=== PATIENT | female | born 1935 | race Caucasian/White ===

== ENCOUNTER → 2019-10-06 05:10 | Outpatient (REF) | payer SELFPAY ==
[2019-10-06 08:29] LABS: Hematocrit 34.8 % (37-47); Mean Corp Hgb Conc 31.6 g/dL (32-36); Mean Corpuscular Hgb 29.2 pg (27.0-32.0); Mean Corpuscular Volume 92.3 fL (81-99); Platelet Count 330 K/mm3 (150-450); RBC Distribution Width CV 15.5 % (11.6-14.6); RBC Distribution Width SD 52.2 fl (35.1-43.9); Red Blood Count 3.77 M/mm3 (4.2-5.4); White Blood Count 7.3 K/mm3 (4.4-11.0)
[2019-10-06 08:57] LABS: Anion Gap 6 (5-15); BUN 11 mg/dL (7-18); BUN/Creat Ratio 14.9 RATIO (10-20); Calcium,Total 8.4 mg/dL (8.5-10.1); Chloride 105 mmol/L (98-107); Creatinine, Serum 0.74 mg/dL (0.55-1.02); EST Glomerular Filtration Rate 80 mL/min (>60); Est Glom Filt Rate - Afr Amer 97 mL/min (>60); Glucose 87 mg/dL (74-106); Potassium 3.8 mmol/L (3.5-5.1); Sodium Level 140 mmol/L (136-145)
== END ==
LOC: OLS.WHLEAS 05:10
PROVIDERS: Referring Provider Family Medicine; Visit Provider Family Medicine
DX: D62 Acute posthemorrhagic anemia (principal); S72.141D Displaced intertrochanteric fracture of right femur, subsequent encounter for closed fracture with routine healing; G89.18 Other acute postprocedural pain; Z47.89 Encounter for other orthopedic aftercare
CPT/HCPCS: 36415; 80048; 85027

== ENCOUNTER → 2019-10-13 04:28 | Outpatient (REF) | payer MEDICARE, SELFPAY ==
[2019-10-13 07:23] LABS: Hematocrit 36.6 % (37-47); Hemoglobin 11.4 g/dL (12.0-15.0); Mean Corp Hgb Conc 31.1 g/dL (32-36); Mean Corpuscular Hgb 28.8 pg (27.0-32.0); Mean Corpuscular Volume 92.4 fL (81-99); Mean Platelet Vol. 10.5 fl (6.2-12.0); Platelet Count 223 K/mm3 (150-450); RBC Distribution Width CV 15.6 % (11.6-14.6); RBC Distribution Width SD 53.2 fl (35.1-43.9); Red Blood Count 3.96 M/mm3 (4.2-5.4); White Blood Count 6.8 K/mm3 (4.4-11.0)
[2019-10-13 07:49] LABS: Anion Gap 4 (5-15); BUN 12 mg/dL (7-18); BUN/Creat Ratio 15.7 RATIO (10-20); Calcium,Total 8.5 mg/dL (8.5-10.1); Chloride 105 mmol/L (98-107); Creatinine, Serum 0.76 mg/dL (0.55-1.02); EST Glomerular Filtration Rate 77 mL/min (>60); Est Glom Filt Rate - Afr Amer 93 mL/min (>60); Glucose 87 mg/dL (74-106); Sodium Level 138 mmol/L (136-145)
== END ==
LOC: OLS.WHLEAS 04:28
PROVIDERS: Referring Provider Family Medicine; Visit Provider Family Medicine
DX: D62 Acute posthemorrhagic anemia (principal); S72.141D Displaced intertrochanteric fracture of right femur, subsequent encounter for closed fracture with routine healing; G89.18 Other acute postprocedural pain; Z47.89 Encounter for other orthopedic aftercare
CPT/HCPCS: 36415; 80048; 85027

== ENCOUNTER → 2019-10-20 05:00 | Outpatient (REF) | payer MEDICARE, SELFPAY ==
[2019-10-20 06:58] LABS: Hematocrit 35.8 % (37-47); Hemoglobin 11.4 g/dL (12.0-15.0); Mean Corp Hgb Conc 31.8 g/dL (32-36); Mean Corpuscular Volume 91.1 fL (81-99); Mean Platelet Vol. 10.8 fl (6.2-12.0); Platelet Count 217 K/mm3 (150-450); RBC Distribution Width CV 15.4 % (11.6-14.6); RBC Distribution Width SD 50.8 fl (35.1-43.9); Red Blood Count 3.93 M/mm3 (4.2-5.4); White Blood Count 6.9 K/mm3 (4.4-11.0)
[2019-10-20 07:33] LABS: Anion Gap 5 (5-15); BUN 16 mg/dL (7-18); BUN/Creat Ratio 22.9 RATIO (10-20); Calcium,Total 8.7 mg/dL (8.5-10.1); Chloride 103 mmol/L (98-107); EST Glomerular Filtration Rate 85 mL/min (>60); Est Glom Filt Rate - Afr Amer 103 mL/min (>60); Glucose 103 mg/dL (74-106); Potassium 4.1 mmol/L (3.5-5.1); Sodium Level 136 mmol/L (136-145)
[2019-10-20 08:25] LABS: Vitamin D,25 Hydroxy 58.5 ng/mL
== END ==
LOC: OLS.WHLEAS 05:00
PROVIDERS: Visit Provider Family Medicine
DX: Z47.89 Encounter for other orthopedic aftercare (principal); S72.141D Displaced intertrochanteric fracture of right femur, subsequent encounter for closed fracture with routine healing; G89.18 Other acute postprocedural pain; D62 Acute posthemorrhagic anemia; R48.8 Other symbolic dysfunctions
CPT/HCPCS: 36415; 80048; 82306; 85027

== ENCOUNTER → 2019-10-26 05:00 | Outpatient (REF) | payer MEDICARE, SELFPAY ==
[2019-10-26 07:29] LABS: Hematocrit 36.7 % (37-47); Hemoglobin 11.6 g/dL (12.0-15.0); Mean Corp Hgb Conc 31.6 g/dL (32-36); Mean Corpuscular Hgb 28.7 pg (27.0-32.0); Mean Corpuscular Volume 90.8 fL (81-99); Mean Platelet Vol. 10.4 fl (6.2-12.0); Platelet Count 273 K/mm3 (150-450); RBC Distribution Width CV 15.3 % (11.6-14.6); RBC Distribution Width SD 50.8 fl (35.1-43.9); Red Blood Count 4.04 M/mm3 (4.2-5.4); White Blood Count 7.8 K/mm3 (4.4-11.0)
[2019-10-26 07:51] LABS: Anion Gap 5 (5-15); BUN 11 mg/dL (7-18); Calcium,Total 8.6 mg/dL (8.5-10.1); Chloride 104 mmol/L (98-107); Creatinine, Serum 0.78 mg/dL (0.55-1.02); EST Glomerular Filtration Rate 74 mL/min (>60); Est Glom Filt Rate - Afr Amer 90 mL/min (>60); Glucose 98 mg/dL (74-106); Potassium 3.9 mmol/L (3.5-5.1); Sodium Level 139 mmol/L (136-145); Thyroid Stim Hormone (TSH) 6.73 uIU/mL (0.358-3.74)
== END ==
LOC: OLS.WHLEAS 05:00
PROVIDERS: Referring Provider Family Medicine; Visit Provider Family Medicine
DX: Z47.89 Encounter for other orthopedic aftercare (principal); D62 Acute posthemorrhagic anemia; S72.141D Displaced intertrochanteric fracture of right femur, subsequent encounter for closed fracture with routine healing; G89.18 Other acute postprocedural pain; E03.9 Hypothyroidism, unspecified
CPT/HCPCS: 36415; 80048; 84443; 85027

== ENCOUNTER → 2019-11-03 05:30 | Outpatient (REF) | payer MEDICARE, SELFPAY ==
[2019-11-03 08:41] LABS: Hematocrit 41.2 % (37-47); Hemoglobin 13.1 g/dL (12.0-15.0); Mean Corp Hgb Conc 31.8 g/dL (32-36); Mean Corpuscular Hgb 28.5 pg (27.0-32.0); Mean Corpuscular Volume 89.8 fL (81-99); Mean Platelet Vol. 10.5 fl (6.2-12.0); Platelet Count 259 K/mm3 (150-450); RBC Distribution Width CV 15.8 % (11.6-14.6); Red Blood Count 4.59 M/mm3 (4.2-5.4); White Blood Count 11.7 K/mm3 (4.4-11.0)
[2019-11-03 08:51] LABS: Anion Gap 7 (5-15); BUN 12 mg/dL (7-18); Calcium,Total 8.8 mg/dL (8.5-10.1); Chloride 99 mmol/L (98-107); Creatinine, Serum 0.71 mg/dL (0.55-1.02); EST Glomerular Filtration Rate 84 mL/min (>60); Est Glom Filt Rate - Afr Amer 101 mL/min (>60); Glucose 120 mg/dL (74-106); Sodium Level 133 mmol/L (136-145)
== END ==
LOC: OLS.WHLEAS 05:30
PROVIDERS: Referring Provider Family Medicine; Visit Provider Family Medicine
DX: D62 Acute posthemorrhagic anemia (principal); Z47.89 Encounter for other orthopedic aftercare; S72.141D Displaced intertrochanteric fracture of right femur, subsequent encounter for closed fracture with routine healing; G89.18 Other acute postprocedural pain
CPT/HCPCS: 36415; 80048; 85027

== ENCOUNTER → 2019-11-10 05:00 | Outpatient (REF) | payer MEDICARE, OTHER, SELFPAY ==
[2019-11-10 08:06] LABS: Hematocrit 36.6 % (37-47); Hemoglobin 11.7 g/dL (12.0-15.0); Mean Corpuscular Hgb 28.6 pg (27.0-32.0); Mean Corpuscular Volume 89.5 fL (81-99); Mean Platelet Vol. 10.8 fl (6.2-12.0); Platelet Count 211 K/mm3 (150-450); RBC Distribution Width CV 15.4 % (11.6-14.6); RBC Distribution Width SD 50.4 fl (35.1-43.9); Red Blood Count 4.09 M/mm3 (4.2-5.4); White Blood Count 9.6 K/mm3 (4.4-11.0)
[2019-11-10 08:16] LABS: Anion Gap 5 (5-15); BUN 14 mg/dL (7-18); BUN/Creat Ratio 19.7 RATIO (10-20); Calcium,Total 8.9 mg/dL (8.5-10.1); Chloride 102 mmol/L (98-107); Creatinine, Serum 0.71 mg/dL (0.55-1.02); EST Glomerular Filtration Rate 83 mL/min (>60); Est Glom Filt Rate - Afr Amer 101 mL/min (>60); Glucose 124 mg/dL (74-106); Potassium 4.3 mmol/L (3.5-5.1); Sodium Level 133 mmol/L (136-145)
== END ==
LOC: OLS.WHLEAS 05:00
PROVIDERS: Visit Provider Family Medicine
DX: D62 Acute posthemorrhagic anemia (principal); S72.141D Displaced intertrochanteric fracture of right femur, subsequent encounter for closed fracture with routine healing; G89.18 Other acute postprocedural pain; Z47.89 Encounter for other orthopedic aftercare
CPT/HCPCS: 36415; 80048; 85027

== ENCOUNTER → 2019-11-17 05:00 | Outpatient (REF) | payer MEDICARE, OTHER, SELFPAY ==
[2019-11-17 07:44] LABS: Hematocrit 41.4 % (37-47); Hemoglobin 12.8 g/dL (12.0-15.0); Mean Corp Hgb Conc 30.9 g/dL (32-36); Mean Corpuscular Hgb 27.5 pg (27.0-32.0); Mean Platelet Vol. 9.9 fl (6.2-12.0); Platelet Count 307 K/mm3 (150-450); RBC Distribution Width CV 15.5 % (11.6-14.6); RBC Distribution Width SD 50.7 fl (35.1-43.9); Red Blood Count 4.65 M/mm3 (4.2-5.4); White Blood Count 7.8 K/mm3 (4.4-11.0)
[2019-11-17 08:06] LABS: Anion Gap 8 (5-15); BUN 11 mg/dL (7-18); BUN/Creat Ratio 14.8 RATIO (10-20); Calcium,Total 8.8 mg/dL (8.5-10.1); Chloride 103 mmol/L (98-107); Creatinine, Serum 0.74 mg/dL (0.55-1.02); EST Glomerular Filtration Rate 79 mL/min (>60); Est Glom Filt Rate - Afr Amer 96 mL/min (>60); Glucose 102 mg/dL (74-106); Potassium 3.8 mmol/L (3.5-5.1); Sodium Level 139 mmol/L (136-145)
== END ==
LOC: OLS.WHLEAS 05:00
PROVIDERS: Referring Provider Family Medicine; Visit Provider Family Medicine
DX: D62 Acute posthemorrhagic anemia (principal); Z47.89 Encounter for other orthopedic aftercare; S72.141D Displaced intertrochanteric fracture of right femur, subsequent encounter for closed fracture with routine healing; G89.18 Other acute postprocedural pain
CPT/HCPCS: 36415; 80048; 85027

== ENCOUNTER → 2019-11-24 05:00 | Outpatient (REF) | payer MEDICARE, OTHER, SELFPAY ==
[2019-11-24 07:39] LABS: Hemoglobin 12.3 g/dL (12.0-15.0); Mean Corp Hgb Conc 30.8 g/dL (32-36); Mean Corpuscular Hgb 27.5 pg (27.0-32.0); Mean Corpuscular Volume 89.5 fL (81-99); Mean Platelet Vol. 10.1 fl (6.2-12.0); Platelet Count 246 K/mm3 (150-450); RBC Distribution Width CV 15.5 % (11.6-14.6); RBC Distribution Width SD 51.4 fl (35.1-43.9); Red Blood Count 4.47 M/mm3 (4.2-5.4); White Blood Count 7.1 K/mm3 (4.4-11.0)
[2019-11-24 08:04] LABS: Anion Gap 4 (5-15); BUN 11 mg/dL (7-18); Calcium,Total 8.9 mg/dL (8.5-10.1); Chloride 104 mmol/L (98-107); Creatinine, Serum 0.78 mg/dL (0.55-1.02); EST Glomerular Filtration Rate 74 mL/min (>60); Est Glom Filt Rate - Afr Amer 90 mL/min (>60); Glucose 97 mg/dL (74-106); Potassium 4.3 mmol/L (3.5-5.1); Sodium Level 137 mmol/L (136-145)
== END ==
LOC: OLS.WHLEAS 05:00
PROVIDERS: Referring Provider Family Medicine; Visit Provider Family Medicine
DX: D62 Acute posthemorrhagic anemia (principal)
CPT/HCPCS: 36415; 80048; 85027

== ENCOUNTER → 2019-12-01 05:00 | Outpatient (REF) | payer MEDICARE, OTHER, SELFPAY ==
[2019-12-01 07:03] LABS: Hematocrit 40.7 % (37-47); Hemoglobin 12.6 g/dL (12.0-15.0); Mean Corpuscular Hgb 27.5 pg (27.0-32.0); Mean Corpuscular Volume 88.7 fL (81-99); Mean Platelet Vol. 10.5 fl (6.2-12.0); Platelet Count 219 K/mm3 (150-450); RBC Distribution Width CV 15.6 % (11.6-14.6); RBC Distribution Width SD 50.9 fl (35.1-43.9); Red Blood Count 4.59 M/mm3 (4.2-5.4); White Blood Count 9.7 K/mm3 (4.4-11.0)
[2019-12-01 07:22] LABS: Anion Gap 5 (5-15); BUN 13 mg/dL (7-18); Calcium,Total 8.8 mg/dL (8.5-10.1); Chloride 101 mmol/L (98-107); Creatinine, Serum 0.81 mg/dL (0.55-1.02); EST Glomerular Filtration Rate 71 mL/min (>60); Est Glom Filt Rate - Afr Amer 86 mL/min (>60); Glucose 100 mg/dL (74-106); Sodium Level 137 mmol/L (136-145)
== END ==
LOC: OLS.WHLEAS 05:00
PROVIDERS: Visit Provider Family Medicine
DX: D62 Acute posthemorrhagic anemia (principal); S72.141D Displaced intertrochanteric fracture of right femur, subsequent encounter for closed fracture with routine healing; G89.18 Other acute postprocedural pain; Z47.89 Encounter for other orthopedic aftercare
CPT/HCPCS: 36415; 80048; 85027

== ENCOUNTER → 2019-12-08 05:00 | Outpatient (REF) | payer MEDICARE, OTHER, SELFPAY ==
[2019-12-08 06:54] LABS: Hematocrit 39.3 % (37-47); Hemoglobin 12.2 g/dL (12.0-15.0); Mean Corpuscular Hgb 27.4 pg (27.0-32.0); Mean Corpuscular Volume 88.1 fL (81-99); Mean Platelet Vol. 10.5 fl (6.2-12.0); Platelet Count 246 K/mm3 (150-450); RBC Distribution Width CV 15.4 % (11.6-14.6); RBC Distribution Width SD 50.2 fl (35.1-43.9); Red Blood Count 4.46 M/mm3 (4.2-5.4); White Blood Count 8.7 K/mm3 (4.4-11.0)
[2019-12-08 07:21] LABS: Anion Gap 5 (5-15); BUN 12 mg/dL (7-18); BUN/Creat Ratio 15.7 RATIO (10-20); Chloride 103 mmol/L (98-107); Creatinine, Serum 0.76 mg/dL (0.55-1.02); EST Glomerular Filtration Rate 76 mL/min (>60); Est Glom Filt Rate - Afr Amer 92 mL/min (>60); Glucose 103 mg/dL (74-106); Sodium Level 137 mmol/L (136-145)
== END ==
LOC: OLS.WHLEAS 05:00
PROVIDERS: Referring Provider Family Medicine; Visit Provider Family Medicine
DX: E03.9 Hypothyroidism, unspecified (principal); Z47.89 Encounter for other orthopedic aftercare; S72.141D Displaced intertrochanteric fracture of right femur, subsequent encounter for closed fracture with routine healing; G89.18 Other acute postprocedural pain; D62 Acute posthemorrhagic anemia
CPT/HCPCS: 36415; 80048; 84443; 85027

== ENCOUNTER → 2019-12-15 05:00 | Outpatient (REF) | payer MEDICARE, OTHER, SELFPAY ==
[2019-12-15 08:22] LABS: Hematocrit 41.3 % (37-47); Hemoglobin 12.8 g/dL (12.0-15.0); Mean Corpuscular Hgb 27.7 pg (27.0-32.0); Mean Corpuscular Volume 89.4 fL (81-99); Mean Platelet Vol. 10.5 fl (6.2-12.0); Platelet Count 242 K/mm3 (150-450); RBC Distribution Width CV 15.5 % (11.6-14.6); RBC Distribution Width SD 51.1 fl (35.1-43.9); Red Blood Count 4.62 M/mm3 (4.2-5.4)
[2019-12-15 08:59] LABS: Anion Gap 7 (5-15); BUN 11 mg/dL (7-18); BUN/Creat Ratio 15.7 RATIO (10-20); Calcium,Total 8.8 mg/dL (8.5-10.1); Chloride 102 mmol/L (98-107); EST Glomerular Filtration Rate 84 mL/min (>60); Est Glom Filt Rate - Afr Amer 102 mL/min (>60); Glucose 89 mg/dL (74-106); Potassium 3.9 mmol/L (3.5-5.1); Sodium Level 139 mmol/L (136-145)
== END ==
LOC: OLS.WHLEAS 05:00
PROVIDERS: Referring Provider Family Medicine; Visit Provider Family Medicine
DX: D62 Acute posthemorrhagic anemia (principal); Z47.89 Encounter for other orthopedic aftercare; S72.141D Displaced intertrochanteric fracture of right femur, subsequent encounter for closed fracture with routine healing; G89.18 Other acute postprocedural pain
CPT/HCPCS: 36415; 80048; 85027

== ENCOUNTER → 2019-12-22 05:00 | Outpatient (REF) | payer MEDICARE, OTHER, SELFPAY ==
[2019-12-22 08:45] LABS: Hematocrit 38.1 % (37-47); Hemoglobin 11.9 g/dL (12.0-15.0); Mean Corp Hgb Conc 31.2 g/dL (32-36); Mean Corpuscular Hgb 27.8 pg (27.0-32.0); Mean Platelet Vol. 10.7 fl (6.2-12.0); Platelet Count 201 K/mm3 (150-450); RBC Distribution Width CV 15.7 % (11.6-14.6); RBC Distribution Width SD 51.4 fl (35.1-43.9); Red Blood Count 4.28 M/mm3 (4.2-5.4); White Blood Count 8.5 K/mm3 (4.4-11.0)
[2019-12-22 09:13] LABS: Anion Gap 4 (5-15); BUN 13 mg/dL (7-18); Calcium,Total 8.7 mg/dL (8.5-10.1); Chloride 106 mmol/L (98-107); Creatinine, Serum 0.76 mg/dL (0.55-1.02); EST Glomerular Filtration Rate 76 mL/min (>60); Est Glom Filt Rate - Afr Amer 92 mL/min (>60); Glucose 98 mg/dL (74-106); Sodium Level 139 mmol/L (136-145)
== END ==
LOC: OLS.WHLEAS 05:00
PROVIDERS: Referring Provider Family Medicine; Visit Provider Family Medicine
DX: Z47.89 Encounter for other orthopedic aftercare (principal); D62 Acute posthemorrhagic anemia; S72.141D Displaced intertrochanteric fracture of right femur, subsequent encounter for closed fracture with routine healing; G89.18 Other acute postprocedural pain
CPT/HCPCS: 36415; 80048; 85027

== ENCOUNTER → 2019-12-29 05:00 | Outpatient (REF) | payer MEDICARE, OTHER, SELFPAY ==
[2019-12-29 08:02] LABS: Hemoglobin 12.6 g/dL (12.0-15.0); Mean Corp Hgb Conc 30.7 g/dL (32-36); Mean Corpuscular Hgb 27.5 pg (27.0-32.0); Mean Corpuscular Volume 89.5 fL (81-99); Mean Platelet Vol. 10.4 fl (6.2-12.0); Platelet Count 209 K/mm3 (150-450); RBC Distribution Width CV 15.4 % (11.6-14.6); RBC Distribution Width SD 51.6 fl (35.1-43.9); Red Blood Count 4.58 M/mm3 (4.2-5.4)
[2019-12-29 08:34] LABS: Anion Gap 3 (5-15); BUN 14 mg/dL (7-18); BUN/Creat Ratio 19.3 RATIO (10-20); Chloride 105 mmol/L (98-107); Creatinine, Serum 0.73 mg/dL (0.55-1.02); EST Glomerular Filtration Rate 81 mL/min (>60); Est Glom Filt Rate - Afr Amer 98 mL/min (>60); Glucose 98 mg/dL (74-106); Sodium Level 138 mmol/L (136-145)
== END ==
LOC: OLS.WHLEAS 05:00
PROVIDERS: Referring Provider Family Medicine; Visit Provider Family Medicine
DX: Z47.89 Encounter for other orthopedic aftercare (principal); D62 Acute posthemorrhagic anemia; S72.141D Displaced intertrochanteric fracture of right femur, subsequent encounter for closed fracture with routine healing; G89.18 Other acute postprocedural pain
CPT/HCPCS: 36415; 80048; 85027

== ENCOUNTER → 2020-01-04 05:00 | Outpatient (REF) | payer MEDICARE, OTHER, SELFPAY ==
[2020-01-04 06:59] LABS: Hematocrit 41.7 % (37-47); Hemoglobin 12.8 g/dL (12.0-15.0); Mean Corp Hgb Conc 30.7 g/dL (32-36); Mean Corpuscular Volume 91.2 fL (81-99); Mean Platelet Vol. 10.4 fl (6.2-12.0); Platelet Count 223 K/mm3 (150-450); RBC Distribution Width CV 15.3 % (11.6-14.6); RBC Distribution Width SD 50.4 fl (35.1-43.9); Red Blood Count 4.57 M/mm3 (4.2-5.4); White Blood Count 5.6 K/mm3 (4.4-11.0)
[2020-01-04 07:34] LABS: Anion Gap 2 (5-15); BUN 12 mg/dL (7-18); BUN/Creat Ratio 15.5 RATIO (10-20); Calcium,Total 9.1 mg/dL (8.5-10.1); Chloride 104 mmol/L (98-107); Creatinine, Serum 0.78 mg/dL (0.55-1.02); EST Glomerular Filtration Rate 75 mL/min (>60); Est Glom Filt Rate - Afr Amer 91 mL/min (>60); Glucose 98 mg/dL (74-106); Potassium 4.3 mmol/L (3.5-5.1); Sodium Level 137 mmol/L (136-145)
== END ==
LOC: OLS.WHLEAS 05:00
PROVIDERS: Visit Provider Family Medicine
DX: D62 Acute posthemorrhagic anemia (principal); S72.141D Displaced intertrochanteric fracture of right femur, subsequent encounter for closed fracture with routine healing; G89.18 Other acute postprocedural pain; Z47.89 Encounter for other orthopedic aftercare
CPT/HCPCS: 36415; 80048; 85027

== ENCOUNTER → 2020-01-13 09:00 | Outpatient (REF) | payer MEDICARE, OTHER, SELFPAY ==
[2020-01-13 10:51] LABS: Hematocrit 39.1 % (37-47); Hemoglobin 12.5 g/dL (12.0-15.0); Mean Corpuscular Hgb 28.2 pg (27.0-32.0); Mean Corpuscular Volume 88.1 fL (81-99); Mean Platelet Vol. 10.5 fl (6.2-12.0); Platelet Count 174 K/mm3 (150-450); RBC Distribution Width CV 15.6 % (11.6-14.6); RBC Distribution Width SD 50.4 fl (35.1-43.9); Red Blood Count 4.44 M/mm3 (4.2-5.4); White Blood Count 4.2 K/mm3 (4.4-11.0)
[2020-01-13 11:18] LABS: Anion Gap 7 (5-15); BUN 10 mg/dL (7-18); BUN/Creat Ratio 14.5 RATIO (10-20); Calcium,Total 8.4 mg/dL (8.5-10.1); Chloride 98 mmol/L (98-107); Creatinine, Serum 0.69 mg/dL (0.55-1.02); EST Glomerular Filtration Rate 86 mL/min (>60); Est Glom Filt Rate - Afr Amer 104 mL/min (>60); Glucose 120 mg/dL (74-106); Potassium 3.7 mmol/L (3.5-5.1); Sodium Level 132 mmol/L (136-145)
== END ==
LOC: OLS.WHLTCC 09:00
PROVIDERS: Referring Provider Family Medicine; Visit Provider Family Medicine
DX: D62 Acute posthemorrhagic anemia (principal); S72.141D Displaced intertrochanteric fracture of right femur, subsequent encounter for closed fracture with routine healing; G89.18 Other acute postprocedural pain; Z47.89 Encounter for other orthopedic aftercare
CPT/HCPCS: 36415; 80048; 85027

== ENCOUNTER → 2020-04-18 05:00 | Outpatient (REF) | payer MEDICARE, OTHER, SELFPAY ==
[2020-04-18 07:22] LABS: Hematocrit 39.6 % (37-47); Hemoglobin 12.4 g/dL (12.0-15.0); Mean Corp Hgb Conc 31.3 g/dL (32-36); Mean Corpuscular Volume 92.5 fL (81-99); Mean Platelet Vol. 11.1 fl (6.2-12.0); Platelet Count 211 K/mm3 (150-450); RBC Distribution Width CV 14.3 % (11.6-14.6); RBC Distribution Width SD 48.4 fl (35.1-43.9); Red Blood Count 4.28 M/mm3 (4.2-5.4); White Blood Count 6.5 K/mm3 (4.4-11.0)
[2020-04-18 08:26] LABS: Anion Gap 3 (5-15); BUN 13 mg/dL (7-18); BUN/Creat Ratio 16.2 RATIO (10-20); Chloride 107 mmol/L (98-107); EST Glomerular Filtration Rate 72 mL/min (>60); Est Glom Filt Rate - Afr Amer 88 mL/min (>60); Glucose 101 mg/dL (74-106); Potassium 3.9 mmol/L (3.5-5.1); Sodium Level 141 mmol/L (136-145); Thyroid Stim Hormone (TSH) 1.17 uIU/mL (0.358-3.74)
== END ==
LOC: OLS.WHLEAS 05:00
PROVIDERS: Visit Provider Family Medicine
DX: D62 Acute posthemorrhagic anemia (principal); S72.141A Displaced intertrochanteric fracture of right femur, initial encounter for closed fracture; G89.18 Other acute postprocedural pain; E03.9 Hypothyroidism, unspecified; Z47.89 Encounter for other orthopedic aftercare
CPT/HCPCS: 36415; 80048; 84443; 85027

== ENCOUNTER → 2020-07-18 05:00 | Outpatient (REF) | payer MEDICARE, OTHER, SELFPAY ==
[2020-07-18 07:52] LABS: Hematocrit 37.2 % (37-47); Hemoglobin 11.6 g/dL (12.0-15.0); Mean Corp Hgb Conc 31.2 g/dL (32-36); Mean Corpuscular Hgb 29.4 pg (27.0-32.0); Mean Corpuscular Volume 94.4 fL (81-99); Platelet Count 180 K/mm3 (150-450); RBC Distribution Width CV 13.6 % (11.6-14.6); RBC Distribution Width SD 47.4 fl (35.1-43.9); Red Blood Count 3.94 M/mm3 (4.2-5.4); White Blood Count 5.9 K/mm3 (4.4-11.0)
[2020-07-18 08:12] LABS: Anion Gap 5 (5-15); BUN 14 mg/dL (7-18); BUN/Creat Ratio 17.7 RATIO (10-20); Calcium,Total 8.7 mg/dL (8.5-10.1); Chloride 106 mmol/L (98-107); Creatinine, Serum 0.79 mg/dL (0.55-1.02); EST Glomerular Filtration Rate 73 mL/min (>60); Est Glom Filt Rate - Afr Amer 88 mL/min (>60); Glucose 93 mg/dL (74-106); Potassium 3.6 mmol/L (3.5-5.1); Sodium Level 141 mmol/L (136-145)
== END ==
LOC: OLS.WHLEAS 05:00
PROVIDERS: Referring Provider Family Medicine; Visit Provider Family Medicine
DX: D62 Acute posthemorrhagic anemia (principal); Z47.89 Encounter for other orthopedic aftercare; S72.141D Displaced intertrochanteric fracture of right femur, subsequent encounter for closed fracture with routine healing; G89.18 Other acute postprocedural pain
CPT/HCPCS: 36415; 80048; 85027

== ENCOUNTER → 2020-10-17 05:00 | Outpatient (REF) | payer MEDICARE, OTHER, SELFPAY ==
[2020-10-17 06:04] LABS: Hematocrit 41.8 % (37-47); Mean Corp Hgb Conc 31.1 g/dL (32-36); Mean Corpuscular Hgb 29.5 pg (27.0-32.0); Mean Corpuscular Volume 94.8 fL (81-99); Mean Platelet Vol. 9.9 fl (6.2-12.0); Platelet Count 237 K/mm3 (150-450); RBC Distribution Width CV 13.5 % (11.6-14.6); RBC Distribution Width SD 47.8 fl (35.1-43.9); Red Blood Count 4.41 M/mm3 (4.2-5.4); White Blood Count 6.2 K/mm3 (4.4-11.0)
[2020-10-17 06:38] LABS: Anion Gap 3 (5-15); BUN 15 mg/dL (7-18); BUN/Creat Ratio 17.9 RATIO (10-20); Chloride 108 mmol/L (98-107); Creatinine, Serum 0.84 mg/dL (0.55-1.02); EST Glomerular Filtration Rate 69 mL/min (>60); Est Glom Filt Rate - Afr Amer 83 mL/min (>60); Glucose 127 mg/dL (74-106); Potassium 3.9 mmol/L (3.5-5.1); Sodium Level 139 mmol/L (136-145); Thyroid Stim Hormone (TSH) 1.91 uIU/mL (0.358-3.74)
== END ==
LOC: OLS.WHLEAS 05:00
PROVIDERS: Visit Provider Family Medicine
DX: D62 Acute posthemorrhagic anemia (principal); Z47.89 Encounter for other orthopedic aftercare; S72.141D Displaced intertrochanteric fracture of right femur, subsequent encounter for closed fracture with routine healing; G89.18 Other acute postprocedural pain; E03.9 Hypothyroidism, unspecified
CPT/HCPCS: 36415; 80048; 84443; 85027

== ENCOUNTER → 2021-01-16 04:00 | Outpatient (REF) | payer MEDICARE, OTHER, SELFPAY ==
[2021-01-16 06:49] LABS: Hematocrit 36.9 % (37-47); Hemoglobin 11.5 g/dL (12.0-15.0); Mean Corp Hgb Conc 31.2 g/dL (32-36); Mean Corpuscular Hgb 28.5 pg (27.0-32.0); Mean Corpuscular Volume 91.3 fL (81-99); Mean Platelet Vol. 10.1 fl (6.2-12.0); Platelet Count 214 K/mm3 (150-450); RBC Distribution Width CV 14.3 % (11.6-14.6); RBC Distribution Width SD 47.9 fl (35.1-43.9); Red Blood Count 4.04 M/mm3 (4.2-5.4); White Blood Count 6.6 K/mm3 (4.4-11.0)
[2021-01-16 07:10] LABS: Anion Gap 7 (5-15); BUN 11 mg/dL (7-18); BUN/Creat Ratio 16.4 RATIO (10-20); Calcium,Total 8.7 mg/dL (8.5-10.1); Chloride 108 mmol/L (98-107); Creatinine, Serum 0.67 mg/dL (0.55-1.02); EST Glomerular Filtration Rate 89 mL/min (>60); Est Glom Filt Rate - Afr Amer 107 mL/min (>60); Glucose 98 mg/dL (74-106); Potassium 3.3 mmol/L (3.5-5.1); Sodium Level 144 mmol/L (136-145)
== END ==
LOC: OLS.WHLEAS 04:00
PROVIDERS: Referring Provider Family Medicine; Visit Provider Family Medicine
DX: D62 Acute posthemorrhagic anemia (principal); S72.141D Displaced intertrochanteric fracture of right femur, subsequent encounter for closed fracture with routine healing; G89.18 Other acute postprocedural pain; Z47.89 Encounter for other orthopedic aftercare
CPT/HCPCS: 36415; 80048; 85027

== ENCOUNTER → 2021-04-17 | Outpatient (REF) | payer MEDICARE, OTHER, SELFPAY ==
[2021-04-17 08:22] LABS: Hematocrit 36.6 % (37-47); Hemoglobin 11.4 g/dL (12.0-15.0); Mean Corp Hgb Conc 31.1 g/dL (32-36); Mean Corpuscular Hgb 28.3 pg (27.0-32.0); Mean Corpuscular Volume 90.8 fL (81-99); Mean Platelet Vol. 10.9 fl (6.2-12.0); Platelet Count 208 K/mm3 (150-450); RBC Distribution Width CV 14.9 % (11.6-14.6); RBC Distribution Width SD 49.8 fl (35.1-43.9); Red Blood Count 4.03 M/mm3 (4.2-5.4); White Blood Count 6.5 K/mm3 (4.4-11.0)
[2021-04-17 08:54] LABS: Anion Gap 4 (5-15); BUN 15 mg/dL (7-18); BUN/Creat Ratio 20.5 RATIO (10-20); Calcium,Total 8.7 mg/dL (8.5-10.1); Chloride 107 mmol/L (98-107); Creatinine, Serum 0.73 mg/dL (0.55-1.02); EST Glomerular Filtration Rate 80 mL/min (>60); Est Glom Filt Rate - Afr Amer 97 mL/min (>60); Glucose 94 mg/dL (74-106); Potassium 3.8 mmol/L (3.5-5.1); Sodium Level 141 mmol/L (136-145); Thyroid Stim Hormone (TSH) 0.32 uIU/mL (0.358-3.74)
== END | disposition home or self-care (01) ==
LOC: OLS.WHLEAS 04:00
PROVIDERS: Referring Provider Family Medicine; Visit Provider Family Medicine
DX: D62 Acute posthemorrhagic anemia (principal); G30.9 Alzheimer's disease, unspecified; F33.9 Major depressive disorder, recurrent, unspecified; E11.9 Type 2 diabetes mellitus without complications; E03.9 Hypothyroidism, unspecified; G47.00 Insomnia, unspecified
CPT/HCPCS: 36415; 80048; 84443; 85027

== ENCOUNTER → 2021-07-17 | Outpatient (REF) | payer MEDICARE, OTHER, SELFPAY ==
[2021-07-17 07:38] LABS: Hematocrit 41.7 % (37-47); Hemoglobin 12.7 g/dL (12.0-15.0); Mean Corp Hgb Conc 30.5 g/dL (32-36); Mean Corpuscular Hgb 29.4 pg (27.0-32.0); Mean Corpuscular Volume 96.5 fL (81-99); Mean Platelet Vol. 10.7 fl (6.2-12.0); Platelet Count 184 K/mm3 (150-450); RBC Distribution Width CV 13.2 % (11.6-14.6); RBC Distribution Width SD 46.8 fl (35.1-43.9); Red Blood Count 4.32 M/mm3 (4.2-5.4); White Blood Count 6.6 K/mm3 (4.4-11.0)
[2021-07-17 08:45] LABS: Anion Gap 8 (5-15); BUN 15 mg/dL (7-18); BUN/Creat Ratio 20.4 RATIO (10-20); Calcium,Total 9.2 mg/dL (8.5-10.1); Chloride 110 mmol/L (98-107); Creatinine, Serum 0.73 mg/dL (0.55-1.02); EST Glomerular Filtration Rate 80 mL/min (>60); Est Glom Filt Rate - Afr Amer 97 mL/min (>60); Glucose 101 mg/dL (74-106); Potassium 4.3 mmol/L (3.5-5.1); Sodium Level 145 mmol/L (136-145)
== END | disposition home or self-care (01) ==
LOC: OLS.WHLEAS 05:00
PROVIDERS: Referring Provider Family Medicine; Visit Provider Family Medicine
DX: E11.9 Type 2 diabetes mellitus without complications (principal); G30.9 Alzheimer's disease, unspecified; F33.9 Major depressive disorder, recurrent, unspecified; E03.9 Hypothyroidism, unspecified; G47.00 Insomnia, unspecified; D62 Acute posthemorrhagic anemia
CPT/HCPCS: 36415; 80048; 85027

== ENCOUNTER → 2021-10-23 | Outpatient (REF) | payer MEDICARE, OTHER, SELFPAY ==
[2021-10-23 08:42] LABS: Hematocrit 37.7 % (37-47); Hemoglobin 11.7 g/dL (12.0-15.0); Mean Corpuscular Hgb 30.1 pg (27.0-32.0); Mean Corpuscular Volume 96.9 fL (81-99); Mean Platelet Vol. 10.7 fl (6.2-12.0); Platelet Count 192 K/mm3 (150-450); RBC Distribution Width CV 12.6 % (11.6-14.6); RBC Distribution Width SD 45.3 fl (35.1-43.9); Red Blood Count 3.89 M/mm3 (4.2-5.4); White Blood Count 6.7 K/mm3 (4.4-11.0)
[2021-10-23 08:58] LABS: Anion Gap 5 (5-15); BUN 21 mg/dL (7-18); BUN/Creat Ratio 27.3 RATIO (10-20); Calcium,Total 8.9 mg/dL (8.5-10.1); Chloride 109 mmol/L (98-107); Creatinine, Serum 0.77 mg/dL (0.55-1.02); EST Glomerular Filtration Rate 76 mL/min (>60); Est Glom Filt Rate - Afr Amer 92 mL/min (>60); Glucose 104 mg/dL (74-106); Potassium 4.1 mmol/L (3.5-5.1); Sodium Level 143 mmol/L (136-145); Thyroid Stim Hormone (TSH) 0.04 uIU/mL (0.358-3.74)
== END ==
LOC: OLS.WHLEAS 05:00
PROVIDERS: Visit Provider Family Medicine
DX: D62 Acute posthemorrhagic anemia (principal); G30.9 Alzheimer's disease, unspecified; F33.9 Major depressive disorder, recurrent, unspecified; E11.9 Type 2 diabetes mellitus without complications; E03.9 Hypothyroidism, unspecified; G47.00 Insomnia, unspecified
CPT/HCPCS: 36415; 80048; 84443; 85027

== ENCOUNTER → 2021-12-18 | Outpatient (REF) | payer MEDICARE, OTHER, SELFPAY ==
[2021-12-18 08:00] LABS: Thyroid Stim Hormone (TSH) 0.94 uIU/mL (0.358-3.74)
== END ==
LOC: OLS.WHLEAS 05:00
PROVIDERS: Visit Provider Family Medicine
DX: E03.9 Hypothyroidism, unspecified (principal); G30.9 Alzheimer's disease, unspecified; F33.9 Major depressive disorder, recurrent, unspecified; E11.9 Type 2 diabetes mellitus without complications; D62 Acute posthemorrhagic anemia; G47.00 Insomnia, unspecified
CPT/HCPCS: 36415; 84443

== ENCOUNTER → 2022-01-22 | Outpatient (REF) | payer MEDICARE, OTHER, SELFPAY ==
[2022-01-22 09:47] LABS: Hematocrit 37.7 % (37-47); Hemoglobin 11.7 g/dL (12.0-15.0); Mean Corpuscular Hgb 29.8 pg (27.0-32.0); Mean Corpuscular Volume 96.2 fL (81-99); Mean Platelet Vol. 11.5 fl (6.2-12.0); Platelet Count 157 K/mm3 (150-450); RBC Distribution Width CV 12.6 % (11.6-14.6); Red Blood Count 3.92 M/mm3 (4.2-5.4); White Blood Count 5.5 K/mm3 (4.4-11.0)
[2022-01-22 10:24] LABS: Anion Gap 4 (5-15); BUN 17 mg/dL (7-18); BUN/Creat Ratio 23.1 RATIO (10-20); Calcium,Total 8.8 mg/dL (8.5-10.1); Chloride 109 mmol/L (98-107); Creatinine, Serum 0.74 mg/dL (0.55-1.02); EST Glomerular Filtration Rate 80 mL/min (>60); Est Glom Filt Rate - Afr Amer 96 mL/min (>60); Glucose 96 mg/dL (74-106); Potassium 3.9 mmol/L (3.5-5.1); Sodium Level 142 mmol/L (136-145)
== END ==
LOC: OLS.WHLEAS 05:00
PROVIDERS: Visit Provider Family Medicine
DX: D62 Acute posthemorrhagic anemia (principal); G30.9 Alzheimer's disease, unspecified; E11.9 Type 2 diabetes mellitus without complications; E03.9 Hypothyroidism, unspecified; G47.00 Insomnia, unspecified; F33.9 Major depressive disorder, recurrent, unspecified
CPT/HCPCS: 36415; 80048; 85027

== ENCOUNTER → 2022-04-16 | Outpatient (REF) | payer MEDICARE, OTHER, SELFPAY ==
[2022-04-16 09:25] LABS: Hematocrit 42.5 % (37-47); Hemoglobin 13.3 g/dL (12.0-15.0); Mean Corp Hgb Conc 31.3 g/dL (32-36); Mean Corpuscular Hgb 31.1 pg (27.0-32.0); Mean Corpuscular Volume 99.3 fL (81-99); Mean Platelet Vol. 11.1 fl (6.2-12.0); Platelet Count 188 K/mm3 (150-450); RBC Distribution Width CV 14.3 % (11.6-14.6); RBC Distribution Width SD 52.8 fl (35.1-43.9); Red Blood Count 4.28 M/mm3 (4.2-5.4); White Blood Count 12.8 K/mm3 (4.4-11.0)
[2022-04-16 10:08] LABS: Anion Gap 10 (5-15); BUN 22 mg/dL (7-18); BUN/Creat Ratio 25.2 RATIO (10-20); Calcium,Total 9.9 mg/dL (8.5-10.1); Chloride 110 mmol/L (98-107); Creatinine, Serum 0.87 mg/dL (0.55-1.02); EST Glomerular Filtration Rate 65 mL/min (>60); Est Glom Filt Rate - Afr Amer 79 mL/min (>60); Glucose 131 mg/dL (74-106); Potassium 3.9 mmol/L (3.5-5.1); Sodium Level 143 mmol/L (136-145); Thyroid Stim Hormone (TSH) 6.38 uIU/mL (0.358-3.74)
== END ==
LOC: OLS.WHLEAS 05:00
PROVIDERS: Visit Provider Internal Medicine
DX: D62 Acute posthemorrhagic anemia (principal); G30.9 Alzheimer's disease, unspecified; E11.9 Type 2 diabetes mellitus without complications; E03.9 Hypothyroidism, unspecified; G47.00 Insomnia, unspecified; F33.9 Major depressive disorder, recurrent, unspecified
CPT/HCPCS: 36415; 80048; 84443; 85027

== ENCOUNTER → 2022-06-25 | Outpatient (REF) | payer MEDICARE, OTHER, SELFPAY ==
[2022-06-25 09:51] LABS: Thyroid Stim Hormone (TSH) 0.33 uIU/mL (0.358-3.74)
[2022-06-25 16:59] LABS: T4 Free Direct 1.82 ng/dL (0.76-1.46)
== END ==
LOC: OLS.WHLEAS 05:00
PROVIDERS: Visit Provider Internal Medicine
DX: E03.9 Hypothyroidism, unspecified (principal); G30.9 Alzheimer's disease, unspecified; D62 Acute posthemorrhagic anemia; E11.9 Type 2 diabetes mellitus without complications; G47.00 Insomnia, unspecified; F33.9 Major depressive disorder, recurrent, unspecified
CPT/HCPCS: 36415; 84439; 84443

== ENCOUNTER → 2022-07-23 | Outpatient (REF) | payer MEDICARE, OTHER, SELFPAY ==
[2022-07-23 10:10] LABS: Anion Gap 4 (5-15); BUN 14 mg/dL (7-18); BUN/Creat Ratio 20.3 RATIO (10-20); Calcium,Total 9.2 mg/dL (8.5-10.1); Chloride 112 mmol/L (98-107); Creatinine, Serum 0.69 mg/dL (0.55-1.02); EST Glomerular Filtration Rate 86 mL/min (>60); Est Glom Filt Rate - Afr Amer 104 mL/min (>60); Glucose 116 mg/dL (74-106); Potassium 3.9 mmol/L (3.5-5.1); Sodium Level 144 mmol/L (136-145)
[2022-07-23 10:11] LABS: Hematocrit 38.2 % (37-47); Hemoglobin 12.1 g/dL (12.0-15.0); Mean Corp Hgb Conc 31.7 g/dL (32-36); Mean Corpuscular Hgb 31.9 pg (27.0-32.0); Mean Corpuscular Volume 100.8 fL (81-99); Mean Platelet Vol. 11.1 fl (6.2-12.0); Platelet Count 180 K/mm3 (150-450); RBC Distribution Width CV 12.9 % (11.6-14.6); RBC Distribution Width SD 48.4 fl (35.1-43.9); Red Blood Count 3.79 M/mm3 (4.2-5.4); White Blood Count 6.6 K/mm3 (4.4-11.0)
== END ==
LOC: OLS.WHLEAS 05:00
PROVIDERS: Visit Provider Internal Medicine
DX: E11.9 Type 2 diabetes mellitus without complications (principal)
CPT/HCPCS: 36415; 80048; 85027

== ENCOUNTER → 2022-08-08 | Outpatient (REF) | payer MEDICARE, OTHER, SELFPAY ==
[2022-08-08 08:01] LABS: T4 Free Direct 1.66 ng/dL (0.76-1.46); Thyroid Stim Hormone (TSH) 0.16 uIU/mL (0.358-3.74)
== END ==
LOC: OLS.WHLEAS 05:00
PROVIDERS: Visit Provider Internal Medicine
DX: E03.9 Hypothyroidism, unspecified (principal)
CPT/HCPCS: 36415; 84439; 84443

== ENCOUNTER → 2022-10-07 | Outpatient (REF) | payer MEDICARE, OTHER, SELFPAY ==
[2022-10-07 09:00] LABS: Thyroid Stim Hormone (TSH) 0.51 uIU/mL (0.358-3.74)
== END ==
LOC: OLS.WHLEAS 05:00
PROVIDERS: Visit Provider Internal Medicine
DX: E03.9 Hypothyroidism, unspecified (principal)
CPT/HCPCS: 36415; 84443

== ENCOUNTER → 2022-10-22 | Outpatient (REF) | payer MEDICARE, OTHER, SELFPAY ==
[2022-10-22 09:12] LABS: Hematocrit 34.8 % (37-47); Hemoglobin 10.6 g/dL (12.0-15.0); Mean Corp Hgb Conc 30.5 g/dL (32-36); Mean Corpuscular Hgb 30.9 pg (27.0-32.0); Mean Corpuscular Volume 101.5 fL (81-99); Mean Platelet Vol. 10.3 fl (6.2-12.0); Platelet Count 217 K/mm3 (150-450); RBC Distribution Width CV 12.8 % (11.6-14.6); RBC Distribution Width SD 47.8 fl (35.1-43.9); Red Blood Count 3.43 M/mm3 (4.2-5.4); White Blood Count 6.5 K/mm3 (4.4-11.0)
[2022-10-22 09:30] LABS: Anion Gap 2 (5-15); BUN 11 mg/dL (7-18); BUN/Creat Ratio 16.8 RATIO (10-20); Chloride 109 mmol/L (98-107); Creatinine, Serum 0.65 mg/dL (0.55-1.02); EST Glomerular Filtration Rate 91 mL/min (>60); Est Glom Filt Rate - Afr Amer 110 mL/min (>60); Glucose 93 mg/dL (74-106); Potassium 4.1 mmol/L (3.5-5.1); Sodium Level 141 mmol/L (136-145)
== END ==
LOC: OLS.WHLEAS 05:00
PROVIDERS: Visit Provider Internal Medicine
DX: E11.9 Type 2 diabetes mellitus without complications (principal)
CPT/HCPCS: 36415; 80048; 85027

== ENCOUNTER → 2022-10-30 | Outpatient (REF) | payer MEDICARE, OTHER, SELFPAY ==
[2022-10-30 10:19] LABS: Ferritin 421 ng/mL (8-252); Iron 45 ug/dL (50-170); Iron Binding Capacity,Total 165 ug/dL (250-450); PERCENT IRON SATURATION 27.3 % (15.0-55.0)
[2022-10-31 05:08] LABS: Transferrin 132 mg/dL (149-313)
== END ==
LOC: OLS.WHLEAS 05:00
PROVIDERS: Visit Provider Nurse Practitioner Adult Health
DX: D64.9 Anemia, unspecified (principal); E11.9 Type 2 diabetes mellitus without complications
CPT/HCPCS: 36415; 82728; 83540; 83550; 84466

== ENCOUNTER → 2023-04-21 | Outpatient (REF) | payer MEDICARE, OTHER, SELFPAY ==
[2023-04-21 17:57] LABS: Mucous, Urine 0 SEEN /hpf (<or=2+); Red Blood Cells-Urine 0 SEEN /hpf (0-5)
[2023-04-21 18:44] LABS: Color, Urine Yellow (Yellow); Glucose, Dipstick Normal (Normal); Ketone-Dipstick 5 mg/dl (Negative); Leukocyte Esterase-Dipstick 500 /ul (Negative); Nitrite-Dipstick Positive (Negative); Occult Blood-Urine 10 /ul (Negative); Protein-Dipstick 30 mg/dl (Negative); Specific Gravity, Urine 1.025 (1.002-1.030); Urine Clarity Sl. Cloudy (Clear); Urine Urobilinogen 1 mg/dl (Normal)
[2023-04-21 18:58] LABS: Urine Bilirubin Dipstick 1 mg/dL (Negative)
[2023-04-21 19:00] LABS: Bacteria 3+ /hpf (None Seen); Squamous Epithelial Cells - UA 5-10 SEEN /hpf (5-10); White Blood Cells 10-25 SEEN /hpf (0-5)
[2023-04-21 19:01] LABS: Calcium Oxalate Crystals Ur 2+ /hpf (<or=2+)
== END ==
LOC: OLS.WHLEAN 16:44
PROVIDERS: Visit Provider Internal Medicine
DX: R41.0 Disorientation, unspecified (principal)
CPT/HCPCS: 81001

== ENCOUNTER 2023-08-21 22:56 | Emergency (ER) | payer MEDICARE, OTHER, SELFPAY ==
[2023-08-21 22:58] VITALS: BP 128/75; PULSE 75; RESP 16; TEMP 36.6; O2SAT 98; BMI 15.9
--- NOTE | 2023-08-21 23:11 | RAD_ITS ---
INDICATION: INJURY/PAIN EXAMINATION/TECHNIQUE: X-RAY - RIGHT XR Shoulder Min 2 Views 4 VIEWS COMPARISON: No relevant prior comparison study available FINDINGS: SOFT TISSUES: No soft tissue swelling or gas. No radiopaque foreign body. BONES/JOINTS: Displaced fracture of the proximal metaphysis of the right humerus. No sclerotic or destructive changes observed. RAD/Shoulder min 2 Views IMPRESSION: Displaced fracture of the proximal metaphysis of the right humerus. Electronically Signed: Binh Canseco MD at 0:23 EDT ,
[2023-08-21] MEDS: Morphine 4 MG/ML Syringe IM (23:43)
--- NOTE | 2023-08-21 23:58 | EDS_ITS ---
HPI History of Present Illness Chief Complaint: Upper Extremity Injury Detail of Chief Complaint: Injury to right shoulder status post fall Informant: EMS and other (Patient is in hospice.) Limited: dementia Occured/Mechanism Mechanism/Context: Yes blunt trauma and Yes fall Onset/Context/Timing Onset: Today Context: Sudden Onset Timing: Continuous Current Severity: Unable to determine because of significant cognitive impairment Maximum Severity: Unable to determine because of significant cognitive impairment Worsened by: Palpation and attempt to move Relieved by: Unable to determine Associated Symptoms Associated Symptoms: Positive for Loss of Funtion Narrative Narrative: Patient is an 87-year-old woman. She is in hospice due to her dementia. She has been losing weight according to family. They are uncertain with regards to life expectancy. History is very limited. She apparently attempted to get up and fell. Prior similar symptoms: No Recent Illness/Hospitalization: No PFSH PFSH Home Medications ?Medication ?Instructions ?Recorded ?Last Taken ?Type oxycodone-acetaminophen 5 mg-325 1 tab PO Q6H PRN PRN pain 5 days 08/22/23 Unknown Rx mg tablet #20 TABLETS ROS ROS ED Review of Systems ROS Unobtainable: due to mental status EXAM Physical Exam Const Vital Signs: 08/21/23 22:58 Temperature 97.9 F Temperature Source Axillary Pulse Rate 75 Respiratory Rate 16 Blood Pressure 128/75 H Blood Pressure Mean 92 Pulse Ox 98 Oxygen Delivery Method Room Air Positive well developed and cachectic General Appearance ED: well developed and cachectic; Negative for cyanotic, diaphoretic or NAD Nutritional Appearance: cachectic HEENT normocephalic and atraumatic Eyes PERRL and EOMs intact bilaterally Chest Wall inspection of chest normal and palpation of chest normal Resp normal respiratory effort and clear to auscultation bilaterally Cardio regular rate, regular rhythm, S1 normal heart sound, S2 normal heart sound and no murmurs Back/Spine no CVA tenderness Extremity Negative for normal to inspection or full ROM Extremity Narrative: Patient has significant swelling and tenderness of the proximal right humerus. There is no pain the patient with a clavicle. There is no grimacing or pain with palpation of the lateral medial epicondyles. There is no pain ovation with supination pronation over the radial head and no discomfort with palpation of the olecranon process. There is no deformity to the forearm. There is no swelling or tenderness of the distal radius ulna, carpal bones or metacarpal bones. Unable to assess for function. She seems to grasp on a stroke of the palm of her hand. Neuro No oriented x3, CN's II-XII intact bilaterally and moves all extremities Neuro Narrative: According to family she is at baseline. Sensorium / Orientation: Negative for alert Psych Psych Narrative: Significantly demented Skin Lesions: No no lesions Rashes: no rashes MDM MDM MDM Narrative Medical decision making narrative: She is not a surgical candidate. Treatment will be conservative. She will be discharged with pain medicine and treated with a sling and swath. Family does not believe she is a good surgical candidate. Her quality life is very poor. She is not a candidate for rehabilitation. Therefore orthopedics was not consulted. Radiography Chest X-Ray - ED: Read by ED Physician (Three-view x-ray of the right shoulder was independent reviewed interpreted by me at 1841. Patient has a fracture at the surgical neck with total displacement.) Discharge Plan Triage Chief Complaint: Upper Extremity Injury ED Provider: Chencho Tapia Dx/Rx/DC Orders Clinical Impression: Closed traumatic displaced fracture of proximal end of right humerus, Dementia Instructions: ED Fracture, Shoulder Prescriptions: New oxycodone-acetaminophen 5-325 mg tablet 1 tab PO Q6H PRN PRN (Reason: pain) 5 Days Qty: 20 0RF Primary Care Provider: Radha Rolon Referrals: Radha Rolon MD [Primary Care Provider] - As Needed Print Language: Lithuanian Disposition Disposition: Residential Facility
[2023-08-22 00:56] VITALS: BP 114/72; PULSE 106; RESP 16; O2SAT 92
[2023-08-22 02:00] VITALS: BP 102/69; PULSE 74; RESP 18; O2SAT 98
[2023-08-22 04:00] VITALS: BP 108/65; PULSE 112; RESP 18; O2SAT 95
--- NOTE | 2023-08-22 05:33 | ED.RN ---
Attempted to call report to aram jordan, no answer at this time. Spoke to hospice twice earlier tonight to provide pt updates
[2023-08-22 06:00] VITALS: BP 119/75; PULSE 115; RESP 20; O2SAT 96
[2023-08-22 06:21] VITALS: BP 119/75; PULSE 115; RESP 20; TEMP 36.6; O2SAT 96
[2023-08-22 08:00] VITALS: BP 113/69; PULSE 60; RESP 16; O2SAT 98
== END 2023-08-22 09:45 ==
PROVIDERS: Emergency Provider Emergency Medicine; PCP Internal Medicine; Visit Provider Emergency Medicine
DX: S42.291A Other displaced fracture of upper end of right humerus, initial encounter for closed fracture (principal); F03.90 Unspecified dementia, unspecified severity, without behavioral disturbance, psychotic disturbance, mood disturbance, and anxiety; Z51.5 Encounter for palliative care; W19.XXXA Unspecified fall, initial encounter; Y92.129 Unspecified place in nursing home as the place of occurrence of the external cause
CPT/HCPCS: 73030; 99283